=== PATIENT | male | born 1970 | race Caucasian/White ===

== ENCOUNTER 2024-07-19 08:53 | Emergency (ER) | payer OTHER, SELFPAY ==
[2024-07-19 09:00] VITALS: BP 132/90; PULSE 84; RESP 18; TEMP 36.4; O2SAT 98; BMI 29.5
--- NOTE | 2024-07-19 09:08 | ED_ITS ---
HPI - General Adult General Chief complaint: Extremity Pain/Injury, Upper Stated complaint: Laceration left index finger - WC Time Seen by Provider: 07/19/24 09:05 History of Present Illness HPI narrative: Patient struck left second finger with mallet while doing some building at work. Finger has skin tear. 53-year-old man presenting to the emergency department with concern of right index finger injury. Was at his place of employment building a wall. Using a rubber mallet struck his left index finger pretty hard and tore it. Here for evaluation and likely repair. Hurts but not complaining of significant pain. Right handed. Admittedly needles make him nervous. Related Data Home Medications ?Medication ?Instructions ?Recorded ?Confirmed No Known Home Medications 07/19/24 07/19/24 Allergies Allergy/AdvReac Type Severity Reaction Status Date / Time No Known Drug Allergies Allergy Verified 07/19/24 09:00 Review of Systems Status of ROS: Reports: 6 or more systems reviewed and unremarkable except as noted in History and below PFSH [facility] Social History Smoking Status: Unknown if ever smoked How often do you have a drink containing alcohol: never AUDIT-C Alcohol total score: 0 Non-prescribed substance use: denies use Exam Narrative: Exam Narrative: Pleasant. Laughs easily. In work attire. Moving all extremities without difficulty. Examination of the left hand in question shows intact to resistance extension flexion of the finger. There is a to have cm flap laceration at the dorsa-radial side distal phalanx. Bleeds easily when manipulated. Full dermal. This does extend over the PIP joint. Does not however appear to encroach on the joint capsule. No foreign body appreciated. There is a slight transverse tear in the skin less than a cm in the middle of this flap as well. Should not require repair. Const: Vital Signs, click to edit/add: Vital Signs - 24 hr 07/19/24 09:00 07/19/24 09:54 Temperature 97.6 F 97.6 F Pulse Rate [Pulse Oximeter] 84 84 Respiratory Rate 18 18 Blood Pressure [Ri ght Upper Arm] 132/90 H 132/90 H Pulse Oximetry 98 Oxygen Delivery Me thod Room Air Documenting provider has reviewed patient's vital signs: yes Course Vital Signs Vital signs: Initial Vital Signs Temperature 97.6 F 07/19/24 09:00 Temperature Source Temporal Artery Scan 07/19/24 09:00 Pulse Rate 84 07/19/24 09:00 Respiratory Rate 18 07/19/24 09:00 Blood Pressure 132/90 H 07/19/24 09:00 Blood Pressure Mean 104 07/19/24 09:00 Pulse Oximetry 98 07/19/24 09:00 Oxygen Delivery Method Room Air 07/19/24 09:00 Vital Signs Temperature 97.6 F 07/19/24 09:00 Pulse Rate 84 07/19/24 09:00 Respiratory Rate 18 07/19/24 09:00 Blood Pressure 132/90 H 07/19/24 09:00 Pulse Oximetry 98 07/19/24 09:00 Oxygen Delivery Method Room Air 07/19/24 09:00 Temperature 97.6 F 07/19/24 09:54 Pulse Rate 84 07/19/24 09:54 Respiratory Rate 18 07/19/24 09:54 Blood Pressure 132/90 H 07/19/24 09:54 Pulse Oximetry 98 07/19/24 09:00 Oxygen Delivery Method Room Air 07/19/24 09:00 Medications Administered Medications: Discontinued Medications Generic Name Dose Route Start Last Admin Trade Name Freq PRN Reason Stop Dose Admin Lidocaine HCl 4 ml 07/19/24 11:21 07/19/24 09:30 Lidocaine 1% 5 Ml (Pf) 5 Ml Vial INJECTION 07/19/24 11:22 4 ml ONCE ONE Administration Medical Decision Making MDM Narrative Medical decision making narrative: Given active lifestyle I think sutures would be best this case. Return to anesthetize with lidocaine in a digital block. Regular anesthesia achieved. Is soaked in Hibiclens solution and scrubbed further with same. All placed 3 interrupted 5-0 Ethilon sutures. Good wound approximation is achieved. Controlled bleeding. Antibiotic ointment and Band-Aid displaced. Did not appear to have bony injury. More of a dancing hard blow that tore/lacerated the skin more than crushed. No x-rays were done. Current on tetanus. See patient discharge plan for further discussion Discharge Plan Discharge Clinical Impression: Finger laceration Patient Disposition: Home, Self-Care Condition: Improved Additional Instructions: sutures out in ~10 days. antibiotic ointment for 5 days and then to a dry dressing. ok to get wet but try not to soak while sutures are in. Watch for spreading redness after 2 days accompanied by heat, swelling, marked increase in pain, purulent drainage. Should update your tetanus within 2 years. Prescriptions: No Action No Known Home Medications Follow Up/Referrals: Provider,Not a Local [Primary Care Provider] - Stand Alone Forms: A4 Data Info Instructions
--- OUTSIDE RECORDS SUMMARY | 2024-07-19 09:27 | XMS_ITS | Clinical Summary ---
Author Organization [facility] Address [place], [place] [address] Care Team Providers Care Calendering Supervisor Name Role Phone [facility] Allergies No known active allergies Medications Medication Sig Dispensed Refills Start Date End Date Status sertraline (ZOLOFT) 50 mg tabletIndications:P anic disorder Take 1 tablet by mouth every morning. Start with 1/2 tab every am for 1 week and then increase to full tab thereafter 30 tablet 12 07/12/2019 Active LORazepam (ATIVAN) 0.5 mg tabIndications:Renee c attacks Take 1 tablet by mouth every 6 hours if needed for Anxiety. 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 Dysthymic disorder 11/10/2007 Immunizations Name Administration Dates Next Due Hepatitis B (Adult) 02/04/2005,01/25/2003,2001 Td (Age >=7 Years) 05/13/2006 Family History Medical History Relation Name Comments Other Brother 1 Epilepsy Other Brother 2 Homochromatosis Diabetes Father Heart Disease Father cad Other Mother Hep C Relation Name Status Comments Brother 1 Brother 2 Father Mother Social History Tobacco Use Types Packs/Day Years Used Date Smoking Tobacco: Every Day Cigarettes Smokeless Tobacco: Never Tobacco Cessation:Ready to Q uit: No; Counseling Given: Yes Alcohol Use Standard Drinks/Week Comments Yes 0 (1 standard drink = 0.6 oz pur e alcohol) occasional PHQ-2 Answer Date Recorded PHQ-2 Score 0 07/12/2019 Sex and Gender Information Value Date Recorded Sex Assigned at Not on file Gender Identity Not on file Sexual Orientation Not on file Obstetrics History Last Filed Vital Signs Vital Sign Reading Time Taken Comments Blood Pressure 134/70 07/12/2019 4:22 PM CDT Pulse 56 07/12/2019 4:22 PM CDT Temperature 36.8 ??C (98.3 ??F) 07/10/2019 1 1:33 AM CDT Respiratory Rate 12 07/12/2019 4:22 PM CDT Oxygen Saturation - - Inhaled Oxygen Concentration - - Weight 90.6 kg (199 lb 12.8 oz) 07/12/2019 4:22 PM CDT Height 175.3 cm (5' 9) 07/12/2019 4:22 PM CDT Body Mass Index 29.51 07/12/2019 4:22 PM CDT Plan of Treatment Health Maintenance Due Date Last Done Comments Tdap 1979 HIV for age 15-65 1983 Hepatitis C screening for ag e 18-79 1986 Colonoscopy through age 75 2013 Lipids for age 45-75 2013 11/10/2007 Tetanus booster 05/13/2016 05/13/2006 Zoster (shingles) series for age 50+ (1 of 2) 2018 BMI (ht and wt on same day) for age 18+ 07/12/2020 07/12/2019, 07/10/2019 Depression screening for age 12+ 07/12/2020 07/12/2019 COVID-19 vaccine series (2022- season) 2024 Influenza for age 50-64 07/16/2024 Pneumococcal series for age 6-64 Aged Out No longer eligible b ased on patient's age to complete this topic Procedures Procedure Name Priority Date/Time Associated Diagnosis Comments LIPID PANEL Routine 11/10/2007 9:14 AM SHIFT COMMANDER Internal Derangement Of Knee Unspec from Last 3 Months or Most Recently Relevant to Health Maintenance Results * (ABNORMAL) LIPID PANEL (11/10/2007 9:14 AM SHIFT COMMANDER) CHOLESTEROL,TOTAL 253(H) 110 - 199 mg/dL [facility] TRIGLYCERIDES 191(H) <150 mg/dL [facility] HDL CHOLESTEROL 37(L) >40 mg/dL [facility] CHOL/HDL RATIO 6.84(H) <4.51 [facility] LDL CHOLESTEROL 178(H) <131 mg/dL [facility] PATIENT STATUS Fasting [facility] Blood specimen (specimen) BLOOD SPECIMEN / Unknown 11/10/2007 9:14 AM SHIFT COMMANDER 11/10/2007 9:06 AM SHIFT COMMANDER Jayce Callahan MD CHEMISTRY [facility] [address] [place] [id number] from Last 3 Months or Most Recently Relevant to Health Maintenance Care Teams Calendering Supervisor Relationship Specialty Start Date End Date Clinic, [facility] [address] [place] [address] PCP - General 02/17/21
[2024-07-19] MEDS: LIDOCAINE 1% 5 ml (pf) 5 ML VIAL 4 ML INJECTION (09:30)
[2024-07-19 09:54] VITALS: BP 132/90; PULSE 84; RESP 18; TEMP 36.4
== END 2024-07-19 09:55 | disposition home or self-care (01) ==
PROVIDERS: Emergency Provider Family Medicine
DX: S61.211A Laceration without foreign body of left index finger without damage to nail, initial encounter (principal); W45.8XXA Other foreign body or object entering through skin, initial encounter; Y99.0 Civilian activity done for income or pay
CPT/HCPCS: 12001; 99283; 99284